=== PATIENT | female | born 1960 | race Caucasian/White ===

== ENCOUNTER → 2016-04-22 | Day surgery (SDC) | payer BC ==
[~2016-04-22] MED LIST: AMBIEN PO; BCP PO; EFFEXOR PO; EFFEXOR XR150 MG PO; ESTRACE0.5 MG PO; LORTAB 5/500 TA1 TA1 PO; OMEPRAZOLE20 M2 PO; PREDNISONE PO; ROBAXIN PO
--- NOTE | ~2016-04-22 | OR ---
Unit #: [id number] #: [id number] Patient: GERALD MARC [id number] [address] [id number] MR#: [id number] NAME: GERALD MARC ROOM: Date of Procedure: 04/22/2016 Admission Date: 04/22/2016 Surgeon: Alexei Jordan M.D. : 1960 Attending Physician: Alexei Jordan M.D. Primary Care Physician: Lyndon Contreras M.D. OPERATIVE REPORT PREOPERATIVE DIAGNOSES The patient has history of gastroesophageal reflux and retrosternal ascending heartburn, postprandial dyspepsia. Therefore, she came for elective diagnostic upper endoscopy. In addition, she also needs a screening colonoscopy. PROCEDURES PERFORMED Upper gastrointestinal endoscopy and biopsy as well as colonoscopy with polypectomy. POSTOPERATIVE DIAGNOSES For upper endoscopy: 1. The patient had distal esophageal mucosal ring. This was dilated using repeated punch biopsy in the same area of the ring. 2. Small hiatus hernia. 3. Moderate prepyloric antral gastritis. A biopsy was obtained from the antrum for CLOtest. 4. Rest of the examination up to third part of duodenum was normal. For colonoscopy: 1. Mild sigmoid and descending colon diverticulosis. 2. A single sessile polyp near the splenic flexure. This was about 6 to 7 mm in size and was removed using snare polypectomy. 3. Rest of the examination up to cecum was normal. The quality of the prep was excellent. The patient to be given extra prep and the procedure was done second time to achieve the desired outcome. RECOMMENDATIONS 1. Follow up the results of polyp histology. 2. Repeat colonoscopy in 5 years. 3. Pantoprazole or omeprazole 40 mg p.o. daily. 4. Follow up in the office in 3 months' time. SEDATION USED MAC. DESCRIPTION OF PROCEDURE Following detailed explanation of the potential risks and complications of an upper endoscopy and a colonoscopy, namely perforation, bleeding, and complications related to sedation, the patient was brought to GI lab laid in the left lateral decubitus position. Lubricated tip of the Olympus video upper endoscope was passed through the bite block into the proximal esophagus under direct vision. The entire esophageal mucosa was examined. Unit #: [id number] #: [id number] Patient: GERALD MARC The patient was noted to have distal esophageal mucosal ring. In addition, a small hiatus hernia was noted. No esophagitis was noted. The scope was then advanced into the gastric cavity and the latter was insufflated. Mucosa of the fundus, body, and antrum was examined and moderate prepyloric antral erythema was noted in the form of erosions, erythema, and linear erythematous streaks. Pylorus was intubated with visualization of the normal duodenal bulb and second and third part of the duodenum. Upon withdrawal and retroflexion, incisura, cardia, and greater curve was examined and biopsy was obtained from the antrum for CLOtest. The scope was then withdrawn in the distal esophagus. Multiple biopsies were obtained from the distal esophageal ring to make it ineffective. The entire esophageal mucosa was examined all the way up to pharynx. No additional findings were noted. The examination table was then turned by 180 degrees and the patient positioned for a colonoscopy. A digital rectal examination was performed which was normal. Lubricated tip of the Olympus video colonoscope was inserted through the anus and advanced under direct vision. The scope was advanced past rectosigmoid into descending colon. Scant small diverticula were noticed in this area. The scope tip was then navigated all the way up to cecum with visualization of the ileocecal valve and the appendiceal orifice. Preparation was excellent with good visualization and photodocumentation was obtained. Successive segments of the colonic mucosa were examined upon withdrawal. A single sessile polyp was noted in the proximal descending colon near the splenic flexure. The latter was removed using snare polypectomy. It was retrieved and sent for histology. No additional polyps were noted. Other than the scant sigmoid diverticula, no other abnormalities were found. The patient did not have any internal hemorrhoids at the anal verge. The scope was then withdrawn and the patient returned to the recovery area. She tolerated the procedure without any postprocedure complications. Dictated by... Malik Ellis TD: 04/22/2016 15:25 JOB #: [id number] OPERATIVE REPORT X Alexei Jordan MD X PROCEDURE OPERATIVE NOTE
== END | disposition home or self-care (01) ==
LOC: COPS 08:04
DX: Z12.11 Encounter for screening for malignant neoplasm of colon (principal); K63.5 Polyp of colon; K29.70 Gastritis, unspecified, without bleeding; K22.2 Esophageal obstruction; K57.30 Diverticulosis of large intestine without perforation or abscess without bleeding; K44.9 Diaphragmatic hernia without obstruction or gangrene; Z90.49 Acquired absence of other specified parts of digestive tract; Z79.899 Other long term (current) drug therapy; Z87.19 Personal history of other diseases of the digestive system
CPT/HCPCS: 87077; 88305